=== PATIENT | male | born 2000 ===

== ENCOUNTER 2022-12-07 21:59 | Emergency (ER) | payer MEDICARE, OTHER ==
[~2022-12-07] VITALS: Ht 160 cm; Wt 104.5 kg
[2022-12-07 23:21] LABS: Urine Bacteria NONE SEEN /hpf (None Seen); Urine Blood Negative /uL (Negative); Urine Clarity HAZY (Clear); Urine Color Yellow (Yellow); Urine Mucus FEW (None Seen); Urine Protein, UAD 1+ (Negative); Urine Specific Gravity 1.032 (1.001-1.035); Urine WBC 52 /hpf (0 - 3)
[2022-12-08] MEDS ORDERED: BACDST PO (00:26)
[2022-12-08] MEDS ORDERED: MICO1KIT10 VA (00:26)
[2022-12-08] MEDS ORDERED: IBUP-1455 PO (00:26)
[2022-12-08] MEDS ORDERED: LORA-622 PO (00:26)
[2022-12-08 01:25] VITALS: BP 124/75; PULSE 84; RESP 18; TEMP 98.2; O2SAT 98
== END 2022-12-08 02:02 | disposition home or self-care (01) ==
LOC: ER 21:59
DX: N39.0 Urinary tract infection, site not specified (principal); B37.89 Other sites of candidiasis; J06.9 Acute upper respiratory infection, unspecified; E66.01 Morbid (severe) obesity due to excess calories; Z88.1 Allergy status to other antibiotic agents; Z68.41 Body mass index [BMI] 40.0-44.9, adult
CPT/HCPCS: 81001